=== PATIENT | female | born 1990 | race Two or more races ===

== ENCOUNTER 2019-08-23 15:01 | Emergency (ER) | payer SELFPAY ==
[~2019-08-23] VITALS: Ht 167.6 cm; Wt 129.3 kg
[2019-08-23] MEDS ORDERED: Acetaminophen 500mg (ES) tab ORAL ONE (15:30)
[2019-08-23 15:32] VITALS: BP 127/79
[2019-08-23] MEDS ORDERED: TYLENOL EXTRA500 MG ORAL (15:33)
--- NOTE | 2019-08-23 15:33 | NUR ---
ED Nurse Note:pt. received tylenol for headache
--- NOTE | 2019-08-23 15:35 | NUR ---
ER DISCHARGE NOTE: Patient is cleared to be discharged per ERMD, pt is aox4, on room air, with stable vital signs. pt was given dc and prescription instructions, pt was able to verbalize understanding, pt is able to ambulate with steady gait. pt took all belongings.
[2019-08-23 15:37] VITALS: BP 127/79
--- NOTE | 2019-08-23 21:57 | Emergency Room Report ---
History of Present Illness General Chief Complaint: Headache Source: Patient Present Illness HPI 29-year-old female presents ED for evaluation. Complaining of neck pain and upper back pain x1 day. Pain is dull, 6 out of 10, nonradiating. Denies headache. Denies fevers or chills. Did not take any medication for pain. States she is 6 weeks . Denies any abdominal pain. Denies any vaginal bleeding or discharge. No other aggravating relieving factors. Denies any other associated symptoms Allergies: Coded Allergies: No Known Allergies (Unverified , 08/23/19) Patient History Past Medical History: none Past Surgical History: none Pertinent Family History: none Social History: Denies: smoking, alcohol use, drug use Now: Yes : 2 Immunizations: UTD Reviewed Nursing Documentation: PMH: Agreed; PSxH: Agreed Nursing Documentation-PMH Past Medical History: No Stated History Review of Systems All Other Systems: negative except mentioned in HPI Physical Exam Vital Signs Date Time Temp Pulse Resp B/P (MAP) Pulse Ox O2 Delivery O2 Flow Rate FiO2 08/23/19 15:07 98.1 84 16 127/79 (95) 97 Room Air Sp02 EP Interpretation: reviewed, normal General Appearance: no apparent distress, alert, GCS 15, non-toxic Head: normocephalic Eyes: bilateral eye normal inspection, bilateral eye PERRL ENT: hearing grossly normal, normal pharynx, no angioedema, normal voice Neck: full range of motion, no meningismus, no bony tend, supple/symm/no masses , tender lateral Respiratory: chest non-tender, lungs clear, normal breath sounds, speaking full sentences Cardiovascular #1: normal inspection Gastrointestinal: normal inspection Rectal: deferred Genitourinary: no CVA tenderness Musculoskeletal: normal inspection Neurologic: alert, motor strength/tone normal, oriented x3, sensory intact, responsive, speech normal Psychiatric: normal inspection Skin: no rash Lymphatic: normal inspection Medical Decision Making Diagnostic Impression: Primary Impression: Strain of neck Qualified Codes: S16.1XXA - Strain of muscle, fascia and tendon at neck level , initial encounter ER Course Hospital Course 29 yo F presents to ED c/o neck pain, upper back pain Differential diagnoses include: neck strain, shoulder strain, dislocation/ fracture Clinical course Patient placed on stretcher. After initial history and physical exam reveals female in no acute distress. On exam there is no midline neck tenderness. Pain laterally. Extending to the upper back. No meningismal signs. Discussed findings with patient. Likely muscle strain. Patient is and treatment options are limited. I recommend Tylenol and heating pad. Safe for discharge with close outpatient follow-up. Given Tylenol in ED. States she has an [employer] Diagnosis - neck strain Stable and discharged to home with prescription for treatment tylenol. Followup with PMD/obgyn. Return to ED if symptoms recur or worsen Last Vital Signs Date Time Temp Pulse Resp B/P (MAP) Pulse Ox O2 Delivery O2 Flow Rate FiO2 08/23/19 15:37 98.1 16 127/79 97 Room Air 08/23/19 15:07 84 Status: improved Disposition: HOME, SELF-CARE Condition: Stable Scripts Acetaminophen* (TYLENOL EXTRA STRENGTH*) 500 Mg Tablet 500 MG ORAL Q8H PRN for Prn Headache/Temp > 101, #30 TAB 0 Refills Prov: Jarod Travis MD 08/23/19 Referrals: NOT CHOSEN IPA/,REFERRING (PCP) Loy Ferguson [facility]. [facility] Patient Instructions: Cervical Strain and Sprain With Rehab-[facility] Jarod Travis MD Aug 23, 2019 21:57
== END 2019-08-23 15:50 | disposition home or self-care (01) ==
LOC: EMR 15:24
DX: S16.1XXA Strain of muscle, fascia and tendon at neck level, initial encounter (principal); O26.91 Pregnancy related conditions, unspecified, first trimester; Z3A.01 Less than 8 weeks gestation of pregnancy
CPT/HCPCS: 99282